=== PATIENT | male | born 1950 | race Caucasian/White ===

== ENCOUNTER 2017-01-03 06:33 | Emergency (ER) | payer OTHER ==
[2017-01-03] MEDS ORDERED: PROMETHAZINE INJ 25 MG in SODIUM CHLORIDE 0.9% 50 ML IV STA (06:48)
[2017-01-03] MEDS ORDERED: PROMETHAZINE 25 MG/1 ML VIAL ONE (06:50)
[2017-01-03 06:58] LABS: BASOPHILS # (AUTO) 0.1 10^3/uL (0.0-0.1); BASOPHILS % (AUTO) 0.6 %; HCT - HEMATOCRIT 51.7 % (42.0-52.0); HGB - HEMOGLOBIN 17.4 g/dL (14.0-18.0); LYMPHOCYTES # (AUTO) 1.3 10^3/uL (1.5-3.5); LYMPHOCYTES % (AUTO) 9.5 %; MEAN CORPUSCULAR HEMOGLOBIN 30.6 pg (27.0-31.0); MEAN CORPUSCULAR HGB CONC 33.6 g/dL (32.0-36.0); MEAN PLATELET VOLUME 7.8 fL (7.4-11.4); MONOCYTES # (AUTO) 0.6 10^3/uL (0.0-1.0); MONOCYTES % (AUTO) 4.5 %; NEUTROPHILS # (AUTO) 11.7 10^3/uL (1.5-6.6); NEUTROPHILS % (AUTO) 85.4 %; NUCLEATED RED BLOOD CELLS AUTO 0.1 /100WBC; RED BLOOD COUNT 5.67 10^6/uL (4.70-6.10); RED CELL DISTRIBUTION WIDTH 14.1 % (12.0-15.0); UNCORRECTED WHITE BLOOD COUNT 13.7 x10^3/uL; WHITE BLOOD COUNT 13.7 x10^3/uL (4.8-10.8)
[2017-01-03] MEDS ORDERED: LORazepam 2 MG/ML SYRINGE IVP STA ×2 (07:07→08:59)
[2017-01-03] MEDS ORDERED: ACETAMINOPHEN 1,000 MG/100 ML 100 ML IV STA (07:07)
[2017-01-03] MEDS ORDERED: KETOROLAC 30 MG/ML VIAL IVP STA (07:07)
[2017-01-03] MEDS ORDERED: SODIUM CHLORIDE 0.9% 1,000 ML IV ONE (07:07)
[2017-01-03 07:13] LABS: ALBUMIN/GLOBULIN RATIO 1.3 (1.0-2.2); BILIRUBIN,TOTAL 0.8 mg/dL (0.2-1.0); CALCIUM 10.1 mg/dL (8.5-10.3); CREATININE 1.2 mg/dL (0.6-1.2); POTASSIUM 4.2 mmol/L (3.5-5.0); TOTAL PROTEIN 8.7 g/dL (6.7-8.2)
[2017-01-03] MEDS ORDERED: LORazepam 2 MG/ML SYRINGE ONE ×2 (07:21→09:02)
[2017-01-03] MEDS ORDERED: KETOROLAC 30 MG/ML VIAL ONE (07:21)
[2017-01-03] MEDS ORDERED: ACETAMINOPHEN 1,000 MG/100 ML 100 ML IV ONE (07:22)
--- NOTE | 2017-01-03 07:50 | ED Physician Documentation ---
History of Present Illness - Stated complaint Stated Complaint: VOMITING/NAUSEA/ABD PX - Chief complaint Chief Complaint: Abd Pain - Additonal information Additional information: hx from pt 66 male hx recurrent abd pain s/p extensive work up (CT scans, angiograms, surgical eval , scopes, porphyria work up etc all neg) sx are typical of cyclic vomiting syndrome has been seen in [place] and has been doing very well for a year on maintenance meds including nortryptiline, prazosin duloxetine mirtazapin after working in [employer] and [employer] he has exacerbation of sx exact same as prior episodes diffuse abd cramping NV no fever no diarrhea no blood in stool no urinary sx Review of Systems Constitutional: denies: Fever, Chills Cardiac: denies: Chest pain / pressure Respiratory: denies: Dyspnea GI: reports: Abdominal Pain, Nausea, Vomiting. denies: Diarrhea : denies: Dysuria, Hematuria Endocrine: denies: Easy bruising / bleeding Immunocompromised: denies: Immunocompromised PD PAST MEDICAL HISTORY - Past Medical History Past Medical History: Yes Cardiovascular: Atrial fibrillation Respiratory: None Neuro: Peripheral neuropathy Endocrine/Autoimmune: None GI: None : None HEENT: Other Psych: Anxiety Musculoskeletal: Chronic back pain Derm: Other - Past Surgical History Past Surgical History: Yes Ortho: Knee replacement, Arthroscopic surgery - Present Medications Home Medications: Ambulatory Orders Medication Instructions Recorded Confirmed Diltiazem HCl [Diltiazem 24Hr Cd] 180 mg PO DAILY 06/29/15 01/03/17 DULoxetine [Cymbalta] 90 mg PO DAILY 01/03/17 01/03/17 Mirtazapine 7.5 mg PO DAILY 01/03/17 01/03/17 Nortriptyline [Pamelor] 10 mg PO DAILY 01/03/17 01/03/17 Prazosin [Minipress] 1 mg PO DAILY 01/03/17 01/03/17 - Allergies Allergies/Adverse Reactions: Allergies Allergy/AdvReac Type Severity Reaction Status Date / Time venom-honey bee Allergy Anaphylaxis Verified 01/03/17 06:50 [bee venom (honey bee)] - Social History Does the pt smoke?: No Smoking Status: Never smoker Does the pt drink ETOH?: No Does the pt have substance abuse?: Yes - Immunizations Immunizations are current?: Yes Immunizations: TDAP >10years/unknown - POLST Patient has POLST: Yes PD ED PE NORMAL - Vitals Vital signs reviewed: Yes - General General: Alert and oriented X 3, Other (moaning) - Neck Neck: Supple, no meningeal sign - Cardiac Cardiac: RRR - Respiratory Respiratory: No respiratory distress, Clear bilaterally - Abdomen Abdomen: Soft, Other (mild diffuse TTP s focal TTP and s peritoneal signs) - Male Male : Other (no hernia, no swelling, NT) - Derm Derm: Normal color - Neuro Neuro: Alert and oriented X 3 Results - Vitals Vitals: Vital Signs - 24 hr 01/03/17 01/03/17 01/03/17 06:43 07:40 08:00 Temperature 36.0 C L Heart Rate 77 97 99 Respiratory 26 H 16 13 Rate Blood Pressure 151/89 H 178/88 H 162/106 H O2 Saturation 98 98 97 Oxygen O2 Source [With Activity] Room air O2 Source [Without Activity] Room air O2 Source Room air - Labs Labs: Laboratory Tests 01/03/17 01/03/17 01/03/17 06:45 06:45 06:45 WBC 13.7 H RBC 5.67 Hgb 17.4 Hct 51.7 MCV 91.0 MCH 30.6 MCHC 33.6 RDW 14.1 Plt Count 267 MPV 7.8 Neut # 11.7 H Lymph # 1.3 L [place] # 0.6 Eos # 0.0 Baso # 0.1 Absolute Nucleated RBC 0.02 Nucleated RBCs 0.1 Sodium 139 Potassium 4.2 Chloride 101 Carbon Dioxide 24 Anion Gap 14.0 H BUN 24 H Creatinine 1.2 Estimated GFR (MDRD) 61 L Glucose 171 H Lactic Acid Calcium 10.1 Total Bilirubin 0.8 AST 25 ALT 16 Alkaline Phosphatase 88 Troponin I < 0.04 Total Protein 8.7 H Albumin 4.9 Globulin 3.8 Albumin/Globulin Ratio 1.3 Lipase 16 L 01/03/17 06:45 WBC RBC Hgb Hct MCV MCH MCHC RDW Plt Count MPV Neut # Lymph # [place] # Eos # Baso # Absolute Nucleated RBC Nucleated RBCs Sodium Potassium Chloride Carbon Dioxide Anion Gap BUN Creatinine Estimated GFR (MDRD) Glucose Lactic Acid 1.8 Calcium Total Bilirubin AST ALT Alkaline Phosphatase Troponin I Total Protein Albumin Globulin Albumin/Globulin Ratio Lipase PD MEDICAL DECISION MAKING - ED course ED course: the usual med combo that works well for this pt is ativan toradol ofirmev and compazine - already given phenergan by night shioft so do not give the compazine - pt feeling better - labs reviewed - plan to dc Departure - Departure Disposition: 01 Home, Self Care Clinical Impression: Recurring abdominal pain Condition: Good Instructions: ED Abdominal Pain Unkn Cause Follow-Up: Angel Brunner MD [Primary Care Provider] - Comments: Please continue the medications that have been working well for you. Follow up with your PMD about your blood pressure and blood sugar - both were elevated today Forms: Activity restrictions
[2017-01-03 09:31] VITALS: BP 153/101
== END 2017-01-03 09:31 | disposition home or self-care (01) ==
LOC: ED 06:33
DX: R10.9 Unspecified abdominal pain (principal); R03.0 Elevated blood-pressure reading, without diagnosis of hypertension; R73.9 Hyperglycemia, unspecified; I48.91 Unspecified atrial fibrillation; G62.9 Polyneuropathy, unspecified
CPT/HCPCS: 36415; 80053; 83605; 83690; 84484; 85025; 96365; 96375; 96376; 99283; 99284; J0131; J2060

== ENCOUNTER 2017-01-19 23:01 | Outpatient (CLI) | payer OTHER | END 2017-01-19 23:02 | disposition critical access hospital (66) | LOC: EMS 23:01 | PROVIDERS: ATTEND Surgery | DX: R10.9 Unspecified abdominal pain (principal); R11.0 Nausea | CPT/HCPCS: A0425; A0427 ==

== ENCOUNTER 2017-01-19 23:46 | Emergency (ER) | payer OTHER ==
--- NOTE | 2017-01-20 00:34 | ED Physician Documentation ---
PD HPI ABD PAIN - Stated complaint Stated Complaint: ABD PAIN - Chief complaint Chief Complaint: Abd Pain - History obtained from History obtained from: Patient, EMS - History of Present Illness Timing - onset: How many hours ago (5-6 hours [employer]) Timing - duration: Hours Timing - details: Abrupt onset Pain level max: 10 Pain level now: 10 Quality: Pain Location: All over / everywhere Radiation: Other (no radiation) Improved by: Other ( no ameliorating factors) Worsened by: Other (no exacerbating factors) Associated symptoms: No: Fever, Nausea, Vomiting, Diarrhea, Constipation, Chest pain Similar symptoms before: No diagnosis (long history of same symptoms, episodically for years. has had extensive w/u without diagnostic results) Recently seen: Emergency Dept (T+R earlier this month for same) Review of Systems Constitutional: reports: Reviewed and negative Cardiac: reports: Reviewed and negative Respiratory: reports: Reviewed and negative GI: reports: Abdominal Pain. denies: Nausea, Vomiting, Constipation, Diarrhea : denies: Dysuria PD PAST MEDICAL HISTORY - Past Medical History Cardiovascular: Atrial fibrillation Respiratory: None Neuro: Peripheral neuropathy Endocrine/Autoimmune: None GI: None : None HEENT: Other Psych: Anxiety Musculoskeletal: Chronic back pain Derm: Other - Past Surgical History Past Surgical History: Yes Ortho: Knee replacement, Arthroscopic surgery - Present Medications Home Medications: Ambulatory Orders Medication Instructions Recorded Confirmed Diltiazem HCl [Diltiazem 24Hr Cd] 180 mg PO DAILY 06/29/15 01/20/17 DULoxetine [Cymbalta] 90 mg PO DAILY 01/03/17 01/20/17 Mirtazapine 7.5 mg PO DAILY 01/03/17 01/20/17 Nortriptyline [Pamelor] 10 mg PO DAILY 01/03/17 01/20/17 Prazosin [Minipress] 1 mg PO DAILY 01/03/17 01/20/17 - Allergies Allergies/Adverse Reactions: Allergies Allergy/AdvReac Type Severity Reaction Status Date / Time venom-honey bee Allergy Anaphylaxis Verified 01/20/17 00:06 [bee venom (honey bee)] - Social History Does the pt smoke?: No Smoking Status: Never smoker Does the pt drink ETOH?: No Does the pt have substance abuse?: Yes - Immunizations Immunizations are current?: Yes Immunizations: TDAP >10years/unknown - POLST Patient has POLST: Yes PD ED PE NORMAL - Vitals Vital signs reviewed: Yes - General General: Alert and oriented X 3, Well developed/nourished, Other (appears uncomfortable, crying at times. diaphoretic) - Neck Neck: Supple, no meningeal sign - Cardiac Cardiac: RRR, No murmur - Respiratory Respiratory: No respiratory distress, Clear bilaterally - Abdomen Abdomen: Normal bowel sounds, Soft, Non tender, Non distended - Derm Derm: Normal color, Warm and dry Results - Vitals Vitals: Vital Signs - 24 hr 01/19/17 01/20/17 01/20/17 23:42 00:37 02:20 Temperature 36.6 C Heart Rate 109 H 118 H 113 H Respiratory 24 22 16 Rate Blood Pressure 148/118 H 168/115 H 170/110 H O2 Saturation 97 93 96 01/20/17 01/20/17 01/20/17 02:35 02:40 02:45 Temperature Heart Rate 112 H 95 106 H Respiratory 18 16 14 Rate Blood Pressure 184/110 H 162/122 H 166/120 H O2 Saturation 97 97 98 01/20/17 01/20/17 03:34 04:23 Temperature Heart Rate 108 H 102 H Respiratory 16 18 Rate Blood Pressure 170/92 H 161/102 H O2 Saturation 95 95 Oxygen O2 Source [With Activity] Room air O2 Source [Without Activity] Room air O2 Source Room air - Labs Labs: Laboratory Tests 01/20/17 01/20/17 00:25 01:01 WBC 14.1 H RBC 5.23 Hgb 15.8 Hct 47.6 MCV 91.1 MCH 30.2 MCHC 33.2 RDW 13.5 Plt Count 283 MPV 7.5 Neut # 12.5 H Lymph # 1.1 L [place] # 0.4 Eos # 0.0 Baso # 0.1 Absolute Nucleated RBC 0.01 Nucleated RBCs 0.1 Sodium 136 Potassium 3.8 Chloride 102 Carbon Dioxide 20 L Anion Gap 14.0 H BUN 21 H Creatinine 1.1 Estimated GFR (MDRD) 67 L Glucose 135 H Calcium 9.5 Total Bilirubin 0.3 AST 19 ALT 17 Alkaline Phosphatase 74 Total Protein 8.1 Albumin 4.4 Globulin 3.7 Albumin/Globulin Ratio 1.2 Lipase 16 L PD MEDICAL DECISION MAKING - ED course Complexity details: reviewed old records, reviewed results, re-evaluated patient , considered differential, d/w patient ED course: Patient responded quite well to IV ativan, toradol, compazine, and benadryl. On reevaluation he is sleeping but arousable to voice, reports resolution of symptoms, comfortable with d/c home. He was given IV lopressor during ED stay for rate control and BP control with adequate effect. Departure - Departure Disposition: 01 Home, Self Care Clinical Impression: Abdominal pain Condition: Good Instructions: ED Abdominal Pain Unkn Cause Male Follow-Up: Angel Brunner MD [Primary Care Provider] - Discharge Date/Time: 01/20/17 04:29
[2017-01-20] MEDS ORDERED: KETOROLAC 60 MG/2 ML VIAL IVP STA (00:40)
[2017-01-20] MEDS ORDERED: ACETAMINOPHEN 1,000 MG/100 ML 100 ML IV STA (00:40)
[2017-01-20] MEDS ORDERED: LORazepam 2 MG/ML SYRINGE IVP STA (00:40)
[2017-01-20] MEDS ORDERED: SODIUM CHLORIDE 0.9% 1,000 ML IV STA (00:40)
[2017-01-20] MEDS ORDERED: PROCHLORPERAZINE INJ 10 MG in SODIUM CHLORIDE 0.9% 50 ML IV ONE (00:41)
[2017-01-20] MEDS ORDERED: SODIUM CHLORIDE 0.9% 1,000 ML IV ONE (00:49)
[2017-01-20] MEDS ORDERED: SODIUM CHLORIDE 0.9% 50 ML IV ONE (00:49)
[2017-01-20] MEDS ORDERED: PROCHLORPERAZINE 10 MG/2 ML VIAL ONE (00:49)
[2017-01-20] MEDS ORDERED: ACETAMINOPHEN 1,000 MG/100 ML 100 ML IV ONE (00:49)
[2017-01-20] MEDS ORDERED: SODIUM CHLORIDE FLUSH 0.9% 10 ML SYRINGE IVP ONE (00:49)
[2017-01-20] MEDS ORDERED: KETOROLAC 30 MG/ML VIAL ONE (00:52)
[2017-01-20 00:58] LABS: ALBUMIN/GLOBULIN RATIO 1.2 (1.0-2.2); BILIRUBIN,TOTAL 0.3 mg/dL (0.2-1.0); CALCIUM 9.5 mg/dL (8.5-10.3); CREATININE 1.1 mg/dL (0.6-1.2); POTASSIUM 3.8 mmol/L (3.5-5.0); TOTAL PROTEIN 8.1 g/dL (6.7-8.2)
[2017-01-20 01:04] LABS: BASOPHILS # (AUTO) 0.1 10^3/uL (0.0-0.1); BASOPHILS % (AUTO) 0.5 %; EOSINOPHILS % (AUTO) 0.2 %; HCT - HEMATOCRIT 47.6 % (42.0-52.0); HGB - HEMOGLOBIN 15.8 g/dL (14.0-18.0); LYMPHOCYTES # (AUTO) 1.1 10^3/uL (1.5-3.5); LYMPHOCYTES % (AUTO) 7.5 %; MEAN CORPUSCULAR HEMOGLOBIN 30.2 pg (27.0-31.0); MEAN CORPUSCULAR HGB CONC 33.2 g/dL (32.0-36.0); MEAN CORPUSCULAR VOLUME 91.1 fL (80.0-94.0); MEAN PLATELET VOLUME 7.5 fL (7.4-11.4); MONOCYTES # (AUTO) 0.4 10^3/uL (0.0-1.0); MONOCYTES % (AUTO) 3.1 %; NEUTROPHILS # (AUTO) 12.5 10^3/uL (1.5-6.6); NEUTROPHILS % (AUTO) 88.7 %; NUCLEATED RED BLOOD CELLS AUTO 0.1 /100WBC; RED BLOOD COUNT 5.23 10^6/uL (4.70-6.10); RED CELL DISTRIBUTION WIDTH 13.5 % (12.0-15.0); UNCORRECTED WHITE BLOOD COUNT 14.1 x10^3/uL; WHITE BLOOD COUNT 14.1 x10^3/uL (4.8-10.8)
[2017-01-20] MEDS ORDERED: LORazepam 2 MG/ML SYRINGE ONE (01:18)
[2017-01-20] MEDS ORDERED: METOPROLOL 5 MG/5 ML VIAL IVP STA (02:26)
[2017-01-20] MEDS ORDERED: METOPROLOL 5 MG/5 ML VIAL IVP ONE (02:30)
[2017-01-20 04:23] VITALS: BP 161/102
== END 2017-01-20 04:29 | disposition home or self-care (01) ==
LOC: EDUNIT# → ED 23:46 → SUPCPDRO 23:46 → ED 01-20 04:29
DX: R10.84 Generalized abdominal pain (principal); I48.91 Unspecified atrial fibrillation
CPT/HCPCS: 36415; 80053; 83690; 85025; 96374; 96375; 99284; J0131; J2060; J7040

== ENCOUNTER 2017-01-24 10:04 | Emergency (ER) | payer OTHER ==
[2017-01-24] MEDS ORDERED: LORazepam 2 MG/ML SYRINGE IVP STA (10:47)
[2017-01-24] MEDS ORDERED: SODIUM CHLORIDE 0.9% 1,000 ML IV ONE (10:47)
[2017-01-24] MEDS ORDERED: PROCHLORPERAZINE 10 MG/2 ML VIAL IVP STA (10:47)
[2017-01-24] MEDS ORDERED: diphenhydrAMINE INJ 50 MG/ML VIAL IVP STA (10:47)
[2017-01-24] MEDS ORDERED: KETOROLAC 60 MG/2 ML VIAL IVP STA (10:48)
--- NOTE | 2017-01-24 10:51 | ED Physician Documentation ---
PD HPI ABD PAIN - Stated complaint Stated Complaint: ABD PX - Chief complaint Chief Complaint: Abd Pain - History obtained from History obtained from: Patient - History of Present Illness Timing - onset: Enter time (0600), Today Timing - duration: Hours Timing - details: Abrupt onset, Still present Quality: Cramping, Sharp, Pain Location: All over / everywhere Improved by: Laying still, Meds Worsened by: Other (nothing) Associated symptoms: Nausea, Vomiting Similar symptoms before: Diagnosis (cyclical vomiting syndrome) - Additional information Additional information: 66-year-old male with an extensive prior history of multiple emergency department visits for abdominal pain nausea and vomiting has been worked up and diagnosed with cyclical vomiting syndrome. [facility]. He has started to have episodes again this month. Review of Systems Constitutional: denies: Fever Eyes: denies: Decreased vision Ears: denies: Ear pain Nose: denies: Congestion Throat: denies: Sore throat Respiratory: reports: Cough GI: reports: Abdominal Pain, Nausea, Vomiting. denies: Constipation, Diarrhea : denies: Dysuria, Frequency PD PAST MEDICAL HISTORY - Past Medical History Past Medical History: Yes Cardiovascular: Atrial fibrillation Respiratory: None Neuro: Peripheral neuropathy Endocrine/Autoimmune: None GI: None : None HEENT: Other Psych: Anxiety Musculoskeletal: Chronic back pain Derm: Other - Past Surgical History Past Surgical History: Yes Ortho: Knee replacement, Arthroscopic surgery - Present Medications Home Medications: Ambulatory Orders Medication Instructions Recorded Confirmed Diltiazem HCl [Diltiazem 24Hr Cd] 180 mg PO DAILY 06/29/15 01/20/17 DULoxetine [Cymbalta] 90 mg PO DAILY 01/03/17 01/20/17 Mirtazapine 7.5 mg PO DAILY 01/03/17 01/20/17 Nortriptyline [Pamelor] 10 mg PO DAILY 01/03/17 01/20/17 Prazosin [Minipress] 1 mg PO DAILY 01/03/17 01/20/17 - Allergies Allergies/Adverse Reactions: Allergies Allergy/AdvReac Type Severity Reaction Status Date / Time venom-honey bee Allergy Anaphylaxis Verified 01/20/17 00:06 [bee venom (honey bee)] steroids Allergy Rash Uncoded 01/24/17 10:16 - Social History Does the pt smoke?: No Smoking Status: Never smoker Does the pt drink ETOH?: No Does the pt have substance abuse?: Yes - Immunizations Immunizations are current?: Yes Immunizations: TDAP >10years/unknown - POLST Patient has POLST: Yes PD ED PE NORMAL - Vitals Vital signs reviewed: Yes (hypertensive ) - General General: Alert and oriented X 3, Well developed/nourished, Other (moaning in pain ) - HEENT HEENT: Atraumatic, PERRL - Neck Neck: Supple, no meningeal sign - Cardiac Cardiac: No murmur - Respiratory Respiratory: No respiratory distress, Clear bilaterally - Abdomen Abdomen: Soft, Non tender - Back Back: No CVA TTP, No spinal TTP - Derm Derm: Normal color, Warm and dry, No rash - Extremities Extremities: No deformity, No edema - Neuro Neuro: Alert and oriented X 3, No motor deficit, No sensory deficit, Normal speech Results - Vitals Vitals: Vital Signs - 24 hr 01/24/17 01/24/17 01/24/17 10:11 12:07 13:10 Temperature 36.2 C L Heart Rate 77 53 L 77 Respiratory 22 18 16 Rate Blood Pressure 156/111 H 180/95 H 177/89 H O2 Saturation 100 97 97 Oxygen O2 Source [With Activity] Room air O2 Source [Without Activity] Room air O2 Source Room air PD MEDICAL DECISION MAKING - ED course Complexity details: reviewed old records, reviewed results, re-evaluated patient , considered differential, d/w patient ED course: 66 y/o male with a history of cyclical vomiting has had good control of his symptoms for the past year, until about a month ago. He has developed symptoms with nausea/vomiting and abdominal pain. The symptoms are similar to what he has had and been worked up for. Here in the ED he is given a cocktail of saline , compazine, toradal and benadrly and this improves his condition dramatically but not completely and he is given dilaudid 1mg IVP. Departure - Departure Disposition: 01 Home, Self Care Clinical Impression: Cyclical vomiting Qualifiers: Vomiting Intractability: non-intractable Nausea presence: with nausea Qualified Code(s): G43.A0 - Cyclical vomiting, not intractable Condition: Stable Instructions: Cyclic Vomiting Syndrome Ch Follow-Up: Angel Brunner MD [Primary Care Provider] - Discharge Date/Time: 01/24/17 13:10
[2017-01-24] MEDS ORDERED: KETOROLAC 30 MG/ML VIAL ONE (10:54)
[2017-01-24] MEDS ORDERED: PROCHLORPERAZINE 10 MG/2 ML VIAL ONE (10:54)
[2017-01-24] MEDS ORDERED: diphenhydrAMINE INJ 50 MG/ML VIAL ONE (10:54)
[2017-01-24] MEDS ORDERED: LORazepam 2 MG/ML SYRINGE ONE (10:54)
[2017-01-24] MEDS ORDERED: HYDROmorphone 1 MG/ML SYRINGE IVP STA (12:40)
[2017-01-24] MEDS ORDERED: HYDROmorphone 1 MG/ML SYRINGE ONE (12:41)
[2017-01-24 13:11] VITALS: BP 177/89
== END 2017-01-24 13:10 | disposition home or self-care (01) ==
LOC: ED 10:04
DX: G43.A0 Cyclical vomiting, in migraine, not intractable (principal); I48.91 Unspecified atrial fibrillation; G62.9 Polyneuropathy, unspecified; F41.9 Anxiety disorder, unspecified; Z96.659 Presence of unspecified artificial knee joint
CPT/HCPCS: 96374; 96375; 99283; 99284; J1170; J2060

== ENCOUNTER 2017-08-20 13:10 | Outpatient (CLI) | payer OTHER ==
--- NOTE | 2017-08-21 10:27 | XRAY Report ---
DATE OF SERVICE: 08/20/2017 THREE VIEW LEFT HAND: 08/20/2017 CLINICAL INDICATION: Trauma, pain. FINDINGS: AP, lateral, and oblique views of the left hand demonstrate no evidence of acute fracture or dislocation. Mild degenerative changes are present. There is a metallic foreign body in the inferior aspect of the thenar eminence, measuring 2 mm. IMPRESSION: OSTEOARTHRITIS. NO EVIDENCE OF ACUTE FRACTURE. SMALL METALLIC FOREIGN BODY IN THE INFERIOR ASPECT OF THE THENAR EMINENCE. TD: 08/21/2017 11:27
== END 2017-08-20 13:11 | disposition home or self-care (01) ==
LOC: DI.S 13:10
PROVIDERS: ATTEND Family Medicine
DX: M19.042 Primary osteoarthritis, left hand (principal); M79.5 Residual foreign body in soft tissue

== ENCOUNTER 2017-09-24 11:18 | Outpatient (CLI) | payer OTHER | END 2017-09-24 11:19 | disposition home or self-care (01) | LOC: RT 11:18 | PROVIDERS: ATTEND Nurse Anesthetist, Certified Registered | DX: Z01.810 Encounter for preprocedural cardiovascular examination (principal); I42.9 Cardiomyopathy, unspecified; I48.0 Paroxysmal atrial fibrillation; K40.90 Unilateral inguinal hernia, without obstruction or gangrene, not specified as recurrent; Z79.899 Other long term (current) drug therapy | CPT/HCPCS: 93005 ==

== ENCOUNTER 2017-09-29 11:12 | Day surgery (SDC) | payer OTHER ==
[~2017-09-29 11:12] MED LIST: ceFAZolin 3 GM/20 ML SYRINGE ONE
[2017-09-29] MEDS ORDERED: LACTATED RINGERS 1,000 ML IV ONE ×2 (11:30→13:16)
[2017-09-29] MEDS ORDERED: BUPIVACAINE 0.5% PF 10 ML VIAL ONE (12:47)
[2017-09-29] MEDS ORDERED: ONDANSETRON 4 MG/2 ML VIAL IVP ONE (13:15)
[2017-09-29] MEDS ORDERED: LIDOCAINE-MPF 2% 5 ML VIAL IM ONE (13:15)
[2017-09-29] MEDS ORDERED: GLYCOPYRROLATE 1 MG/5 ML VIAL IVP ONE (13:15)
[2017-09-29] MEDS ORDERED: MIDAZOLAM 2 MG/2 ML VIAL IVP ONE (13:15)
[2017-09-29] MEDS ORDERED: fentaNYL 100 MCG/2 ML VIAL IVP ONE (13:15)
[2017-09-29] MEDS ORDERED: PROPOFOL 200 MG/20 ML VIAL IVP ONE (13:15)
[2017-09-29] MEDS ORDERED: KETOROLAC 30 MG/ML VIAL IVP ONE (13:15)
[2017-09-29] MEDS ORDERED: BUPIVACAINE 0.5% PF 10 ML VIAL IM ONE (14:05)
[2017-09-29] MEDS ORDERED: oxyCOD/ACETAMIN 5 MG/325 MG TABLET PO ONE (15:26)
[2017-09-29 15:59] VITALS: BP 126/95
--- NOTE | 2017-09-29 19:14 | OPERATIVE REPORT ---
Operative Report - General Procedure Date: 09/29/17 Planned Procedure: LEFT inguinal herniorrhaphy Pre-Op Diagnosis: LEFT inguinal hernia Procedure Performed: LEFT indirect and direct inguinal herniorrhaphy with mesh Post Op Diagnosis: LEFT direct and indirect inguinal hernia - Procedure Note Primary Surgeon: Tiago Foote MD Anesthesia Provider: Brooks Price CRNA Anesthesia Technique: General LMA, Local (30 ml 1/2 % marcaine) IV Fluids (mL): 1,500 Estimated Blood Loss (mL): 15 Complications: None. - Other Other Information/Narrative: OPERATIVE DESCRIPTION/REPORT: After verbal and written informed consent was obtained detailing the risks of infection, bleeding requiring transfusion with its risks, nerve injury, and , and after I met with the patient confirming the surgery and the site of the surgery and after initialing the site of the surgery with a surgical marker , the patient was brought to the operative suite and placed supine on the operating table. Great care was taken to avoid pressure points to prevent pressure necrosis or nerve injury. Monitoring devices were applied along with TEDs and pneumatic compressive stockings (to prevent DVT). The patient received preoperative antibiotics for surgical prophylaxis. Brooks Price sedated and anesthetized the patient for the entire procedure. The patient was prepped and draped in the usual sterile manner. With the patient draped my initials were clearly visible. A "time in" then confirmed that the paitient was identified with 3 identifiers (name, date and medical record number), the history and physical was in the chart, the signed consent confirming the procedure was in the chart, the patient was in the correct position, the aforementioned prophylactic measures were in place or given, we had the correct personnel and equipment to complete the procedure and that anesthesia, surgery and nursing were given an opportunuty to express any concerns. With the agreement of everyone in the room, we proceeded with the operation. A standard inguinal incision was made and dissection was carried down to the external oblique aponeurosis using a combination of Metzenbaum scissors and Bovie electrocautery. The external oblique aponeurosis was cleared of overlying adherent tissue, and the external ring was delineated. The external oblique was the incised with a scalpel and this incision was carried out to the external ring using Metzenbaum scissors. Having exposed the inguinal canal, the cord structures were from the canal using blunt dissection, and a Patricks[place] drain was placed around the cord structures at the level of the pubic tubercle. This Venessa drain was then used to retract the cord structures as needed. Adherent cremasteric muscle was dissected free from the cord using Bovie electrocautery. The cord was then explored using a combination of sharp and blunt dissection , and the sac was found anteromedially to the cord structures. The sac was dissected free from the cord structures using a combination of blunt dissection and Bovie electrocautery. Once preperitoneal fat was encountered, the dissection stopped and the sac was high ligated with a 2-0 PDS, transected, the stump cauterized and allowed to retract back into the abdominal cavity and a large Bard Perfix plug (Ref# [], Lot# [], use date []) inserted into the internal ring. The plug was secured to the internal ring by interrupted 2-0 PDS sutures. The Bard Perfix enlay patch was then placed on the floor of the inguinal canal and secured in place using interrupted 0 PDS sutures to the conjoined tendon superiorly, pubic tubercle medially, and shelving edge inferiorly. By reinforcing the floor with the enlay patch, a new internal ring was thus formed. The [place] drain was removed. The wound was then irrigated using sterile saline, and hemostasis was obtained using Bovie electrocautery. The incision in the external oblique was approximated using a 3-0 Vicryl in a running fashion , thus reforming the external ring. The fascia and skin was then injected with the 1/2% marcaine for senior living pain control. The skin incision was approximated with 4-0 Monocryl in a subcuticular fashion. The skin was prepped with benzoin and steristrips were applied. At this point a time out was performed that confirmed that all the counts were correct, the procedure that was performed, the blood loss, the IV fluids administered, and the patients condition. A dressing was then applied. Gentle
== END 2017-09-29 11:13 | disposition home or self-care (01) ==
LOC: SDS 11:12
PROVIDERS: ATTEND Surgery
PROC: 0YU60JZ Supplement Left Inguinal Region with Synthetic Substitute, Open Approach (ICD-10-PCS; principal; 2017-09-29 12:15)
DX: K40.90 Unilateral inguinal hernia, without obstruction or gangrene, not specified as recurrent (principal); I10 Essential (primary) hypertension; I42.9 Cardiomyopathy, unspecified; Z87.891 Personal history of nicotine dependence
CPT/HCPCS: 49505; A9270; C1781; J7120

== ENCOUNTER 2019-04-14 13:46 | Outpatient (CLI) | payer OTHER ==
[2019-04-14 14:00] LABS: BASOPHILS # (AUTO) 0.1 10^3/uL (0.0-0.1); BASOPHILS % (AUTO) 0.5 %; EOSINOPHILS # (AUTO) 0.1 10^3/uL (0.0-0.7); HGB - HEMOGLOBIN 16.3 g/dL (14.0-18.0); LYMPHOCYTES % (AUTO) 21.2 %; MEAN CORPUSCULAR HGB CONC 33.7 g/dL (32.0-36.0); MEAN CORPUSCULAR VOLUME 94.9 fL (80.0-94.0); MEAN PLATELET VOLUME 9.2 fL (7.4-11.4); MONOCYTES # (AUTO) 0.8 10^3/uL (0.0-1.0); MONOCYTES % (AUTO) 8.8 %; NEUTROPHILS # (AUTO) 6.4 10^3/uL (1.5-6.6); PLT - PLATELET COUNT 223 10^3/uL (130-450); RED BLOOD COUNT 5.09 10^6/uL (4.70-6.10); RED CELL DISTRIBUTION WIDTH 13.2 % (12.0-15.0); WHITE BLOOD COUNT 9.5 x10^3/uL (4.8-10.8)
[2019-04-14 14:26] LABS: GLUCOSE, URINE (UA) NEGATIVE (NEGATIVE); KETONES,URINE (UA) 15 mg/dL (NEGATIVE); LEUKOCYTE ESTERASE, URINE NEGATIVE (NEGATIVE); NITRITE,URINE NEGATIVE (NEGATIVE); OCCULT BLOOD,URINE NEGATIVE (NEGATIVE); PROTEIN,URINE TRACE mg/dL (NEGATIVE); UROBILINOGEN,URINE 1 (NORMAL) E.U./dL (NORMAL)
[2019-04-14 14:32] LABS: BACTERIA,URINE Few /HPF (None Seen); BILIRUBIN,URINE NEGATIVE (NEGATIVE); CLARITY,URINE HAZY (CLEAR); ICTOTEST,URINE NEGATIVE; RBC,URINE 0-5 /HPF (0-5); SQUAMOUS EPITHELIAL CELL,UR MANY Squamous (<= Few)
[2019-04-14 14:33] LABS: CASTS, URINE 6-10 Hyaline Casts /LPF; MUCUS,URINE Few Strands
[2019-04-14 14:36] LABS: HEMOGLOBIN A1C 0.64 g/dL; HEMOGLOBIN A1C % 5.6 % (4.6-6.2)
[2019-04-14 14:50] LABS: CALCIUM 9.9 mg/dL (8.5-10.3); CREATININE 1.6 mg/dL (0.6-1.2)
== END 2019-04-14 13:47 | disposition home or self-care (01) ==
LOC: LAB 13:46
PROVIDERS: ATTEND Orthopaedic Surgery
DX: Z01.818 Encounter for other preprocedural examination (principal); Z01.812 Encounter for preprocedural laboratory examination; N39.9 Disorder of urinary system, unspecified; R73.9 Hyperglycemia, unspecified
CPT/HCPCS: 36415; 80048; 81001; 81003; 83036; 85025; 87086; 93005

== ENCOUNTER 2019-08-18 11:31 | Outpatient (CLI) | payer OTHER ==
[2019-08-18] MEDS ORDERED: IOVERSOL 320 100 ML VIAL IVP ONE ×2 (11:37→12:57)
[2019-08-18] MEDS ORDERED: IOVERSOL 320 50 ML VIAL ONE (11:37)
[2019-08-18] MEDS ORDERED: IOVERSOL 320 50 ML VIAL PO ONE (12:57)
--- NOTE | 2019-08-18 16:28 | CT Report ---
Reason: ABDOMEN PAIN Procedure Date: 08/18/2019 Accession Number: [id number] / [id number] Procedure: CT - Abdomen/Pelvis W CPT Code: Final Report FULL RESULT: EXAM: CT ABDOMEN AND PELVIS EXAM DATE: 08/18/2019 12:51 PM. CLINICAL HISTORY: ABDOMEN PAIN. COMPARISONS: ABDOMEN/PELVIS ANGIO 02/02/2015 9:28 AM. TECHNIQUE: Routine helical CT imaging was performed through the abdomen and pelvis. IV contrast: OPTI 320 90ML. Enteric contrast: No. Reconstructions: Coronal and sagittal. In accordance with CT protocol optimization, one or more of the following dose reduction techniques were utilized for this exam: automated exposure control, adjustment of mA and/or KV based on patient size, or use of iterative reconstructive technique. FINDINGS: Lung Bases: Unremarkable. Liver: Normal. No masses. Gallbladder/Bile Ducts: Unremarkable. Spleen: Normal. Pancreas: Normal. Adrenal Glands: Normal. Kidneys: Normal. No masses or hydronephrosis. Peritoneal Cavity/Bowel: Diverticulosis. Small fat-containing probable No free fluid, free air or adenopathy. No masses or acute inflammatory process. The appendix is well visualized and normal. Pelvic Organs: Fat-containing right inguinal. The bladder and visualized pelvic organs are within normal limits. Vasculature: Atherosclerotic changes Bones: DJD spine, SI joints, hips. Other: None. IMPRESSION: 1. Diverticulosis. 2. Normal appendix RADIA
== END 2019-08-18 11:32 | disposition home or self-care (01) ==
LOC: DI 11:31
PROVIDERS: ATTEND Nurse Practitioner Family
DX: K57.30 Diverticulosis of large intestine without perforation or abscess without bleeding (principal); R10.9 Unspecified abdominal pain
CPT/HCPCS: 74177; Q9967

== ENCOUNTER 2020-03-16 22:10 | Outpatient (CLI) | payer OTHER | END 2020-03-16 22:11 | disposition critical access hospital (66) | LOC: EMS 22:10 | PROVIDERS: ATTEND Surgery | DX: S09.90XA Unspecified injury of head, initial encounter (principal); R41.82 Altered mental status, unspecified; Z79.01 Long term (current) use of anticoagulants; W19.XXXA Unspecified fall, initial encounter; Y92.009 Unspecified place in unspecified non-institutional (private) residence as the place of occurrence of the external cause | CPT/HCPCS: A0425; A0427 ==

== ENCOUNTER 2020-12-14 13:08 | Outpatient (CLI) | payer OTHER | END 2020-12-14 13:09 | disposition home or self-care (01) | LOC: RT 13:08 | PROVIDERS: ATTEND Surgery | DX: Z01.818 Encounter for other preprocedural examination (principal); K40.90 Unilateral inguinal hernia, without obstruction or gangrene, not specified as recurrent; Z20.822 Contact with and (suspected) exposure to COVID-19 | CPT/HCPCS: 93005 ==

== ENCOUNTER 2020-12-17 06:29 | Day surgery (SDC) | payer OTHER ==
[~2020-12-17 06:29] MED LIST changes: +ceFAZolin 2 GM/50 ML 2 GM/50 ML BAG IV ONE; -ceFAZolin 3 GM/20 ML SYRINGE ONE
[2020-12-17] MEDS ORDERED: LACTATED RINGERS 1,000 ML IV ONE ×2 (06:36→09:12)
[2020-12-17] MEDS ORDERED: ceFAZolin 1 GM VIAL ONE (07:05)
[2020-12-17] MEDS ORDERED: BUPIVACAINE 0.5% PF 30 ML VIAL ONE (07:05)
[2020-12-17] MEDS ORDERED: SODIUM CHLORIDE 0.9% 10 ML VIAL IVP ONE ×2 (07:05→08:02)
[2020-12-17] MEDS ORDERED: LIDOCAINE MPF 2%-EPI 1:200000 20 ML VIAL ONE (07:06)
[2020-12-17] MEDS ORDERED: fentaNYL 100 MCG/2 ML VIAL ONE (07:11)
[2020-12-17] MEDS ORDERED: MIDAZOLAM 2 MG/2 ML VIAL ONE (07:11)
--- NOTE | 2020-12-17 07:12 | ANESTHESIA ---
Pre-Anesthesia VS, & Labs - Diagnosis right inguinal hernia - Procedure right inguinal hernia repair Vital Signs: Temp Pulse Resp BP Pulse Ox 36.1 C L 85 14 117/66 99 12/17/20 06:40 12/17/20 06:40 12/17/20 06:40 12/17/20 06:40 12/17/20 06:40 Height: 6 ft Weight (kg): 96 kg Body Mass Index: 28.7 BMI Classification: Overweight - NPO >8 hours Home Medications and Allergies Home Medications: Ambulatory Orders Alprazolam [Xanax] 1 mg PO PRN PRN 12/07/20 Apixaban [Eliquis] 5 mg PO BID 12/07/20 Butorphanol Tartrate 10 mg NS DAILY 12/07/20 Diltiazem HCl [Diltiazem 24Hr Cd] 180 mg PO DAILY 06/29/15 DULoxetine [Cymbalta] 90 mg PO DAILY 01/03/17 Mirtazapine 7.5 mg PO DAILY 01/03/17 Nortriptyline [Pamelor] 10 mg PO DAILY 01/03/17 Prazosin [Minipress] 1 mg PO DAILY 01/03/17 Alprazolam [Xanax] 1 mg PO PRN PRN 12/07/20 Apixaban [Eliquis] 5 mg PO BID 12/07/20 Butorphanol Tartrate 10 mg NS DAILY 12/07/20 Allergies/Adverse Reactions: Allergies Allergy/AdvReac Type Severity Reaction Status Date / Time Corticosteroids Allergy Anaphylaxis Verified 12/14/20 12:49 (Glucocorticoids) venom-honey bee Allergy Anaphylaxis Verified 12/14/20 12:49 [bee venom (honey bee)] Anes History & Medical History - Anesthetic History Anesthesia Complications: reports: No previous complications - Medical History Cardiovascular: reports: Atrial fibrillation Pulmonary: reports: None Gastrointestinal: reports: None Urinary: reports: None Musculoskeletal: reports: Chronic back pain Endocrine/Autoimmune: reports: None Blood Disorders: reports: None Skin: reports: None Smoking Status: Never smoker History of Cancer?: No - Surgical History General: reports: Colonoscopy, Other Orthopedic: reports: Knee replacement, Rotator cuff repair, Arthroscopic surgery, Spine surgery Exam General: Alert, Oriented x3 Dental: WNL Mouth Opening: Greater than 4 Fingerbreadths Neck Mobility: Reduced Mallampati classification: II Respiratory: Lungs clear Cardiovascular: Normal S1, Normal S2 (irreg- a fib) Plan Anesthesia Type: General Consent for Procedure(s) Verified and Reviewed: Yes Code Status: Attempt Resuscitation ASA classification: 2-Mild systemic disease Is this case an emergency?: No
[2020-12-17] MEDS ORDERED: PROPOFOL 200 MG/20 ML VIAL IVP ONE (07:13)
[2020-12-17] MEDS ORDERED: LIDOCAINE-MPF 2% 5 ML VIAL ONE (07:13)
[2020-12-17] MEDS ORDERED: ePHEDrine 50 MG/ML VIAL IVP PRN (07:16)
[2020-12-17] MEDS ORDERED: METOCLOPRAMIDE 10 MG/2 ML VIAL IVP PRN (07:16)
[2020-12-17] MEDS ORDERED: NALOXONE 0.4 MG/ML VIAL IVP PRN (07:16)
[2020-12-17] MEDS ORDERED: HYDROmorphone 0.5 MG/0.5 ML SYRINGE IVP PRN (07:16)
[2020-12-17] MEDS ORDERED: ATROPINE ABBOJECT 1 MG/10 ML SYRINGE IVP PRN (07:16)
[2020-12-17] MEDS ORDERED: MORPHINE 2 MG/ML CARPUJECT IVP PRN (07:16)
[2020-12-17] MEDS ORDERED: ONDANSETRON 4 MG/2 ML VIAL IVP PRN ×2 (07:16→08:53)
[2020-12-17] MEDS ORDERED: LACTATED RINGERS 1,000 ML IV SCH (08:00)
[2020-12-17] MEDS ORDERED: GLYCOPYRROLATE 1 MG/5 ML VIAL ONE (08:06)
[2020-12-17] MEDS ORDERED: ceFAZolin 1 GM VIAL IR ONE (08:23)
[2020-12-17] MEDS ORDERED: LIDOCAINE 2%-EPI 1:100000 20 ML MDV SUBQ ONE (08:23)
[2020-12-17] MEDS ORDERED: BUPIVACAINE 0.5% PF 30 ML VIAL INFIL ONE (08:24)
--- NOTE | 2020-12-17 08:52 | OPERATIVE REPORT ---
Operative Report - General Procedure Date: 12/17/20 Planned Procedure: Right inguinal hernia repair Pre-Op Diagnosis: Symptomatic right inguinal hernia Procedure Performed: Right inguinal hernia repair Post Op Diagnosis: Large direct right inguinal hernia - Procedure Note Primary Surgeon: Lui Anesthesia Provider: TURNER Price Anesthesia Technique: General LMA, Local Estimated Blood Loss (mL): 10 Findings: Large direct right inguinal hernia Complications: None apparent - Other Other Information/Narrative: After obtaining informed consent, the patient is brought to the operating room and placed in the supine position on the operating table. Following successful induction of general endotracheal anesthesia, appropriate padding of all bony prominences, and placement of appropriate monitors, the abdomen was prepped and draped in the standard surgical fashion. A timeout was held per scope protocol. All elements of the surgical safety checklist were followed before, during, and after the procedure. We began the procedure by infiltrating a mixture of local anesthetics medial to the anterior superior iliac spine on the right. This was done to create an ileal inguinal nerve block. We then selected a site for an incision in the right lower quadrant just superior and lateral to the right pubic tubercle. This area was anesthetized with additional local anesthetic and an incision was created here.The incision was carried down through the skin and subcutaneous tissue to reveal the fascia of the external oblique aponeurosis. Retractor was placed and the aponeurosis was opened in direction of its fibers. The ilioinguinal nerve was immediately identified. We continued by identifying the spermatic cord and gently encircling it with a Wittman drain. The hernia sac was carefully dissected free from the cord structures and was noted to be in the inferior lateral position. It consisted primarily of a large lipoma and a direct inguinal hernia. The hernia contents were placed back into the abdominal cavity. We elected to repair the hernia with a large Prolene hernia system mesh implant. This was dipped in Ancef containing solution and then deployed into the defect. The posterior leaflet was straightened and flattened in the preperitoneal space. The anterior leaflet was then nicked medially to provide a place for the spermatic cord and then closed with a Vicryl suture. The more inferior aspect was then sewn to Carlos's ligament medially. Laterally it was tucked under the external beak aponeurosis. The wound was checked for hemostasis and irrigated with warm saline solution. It was aspirated free of all fluid and particulate matter. The extra oblique aponeurosis was then closed with a running locking Vicryl suture Bonita's fascia was closed with Vicryl suture and Monocryl stitches were placed in the skin. All sponge, needle, and instrument counts were correct at the conclusion of the case. The patient was allowed awaken from anesthesia without difficulty and taken to the postanesthesia care unit in good condition.
[2020-12-17] MEDS ORDERED: oxyCODONE 5 MG TABLET PO PRN (08:53)
[2020-12-17] MEDS ORDERED: ACETAMINOPHEN 325 MG TABLET PO PRN (08:53)
[2020-12-17] MEDS ORDERED: IBUPROFEN 600 MG TABLET PO PRN (08:53)
[2020-12-17 09:42] VITALS: BP 122/76
--- NOTE | 2020-12-17 11:16 | ANESTHESIA POST OP EVALUATION ---
Anesthesia Post Eval - Post Anesthesia Eval Vitals: Last Vital Signs Temp 36.2 C L 12/17/20 09:25 Pulse 68 12/17/20 09:25 Resp 14 12/17/20 09:25 BP 122/76 12/17/20 09:25 Pulse Ox 96 12/17/20 09:25 CV Function Including HR & BP: Stable Pain Control: Satisfactory Nausea & Vomiting: Negative Mental Status: Baseline Respiratory Status: Airway Patent Hydration Status: Satisfactory Anesthesia Complications: None
== END 2020-12-17 06:30 | disposition home or self-care (01) ==
LOC: SDS 06:29
PROVIDERS: ATTEND Surgery
DX: K40.90 Unilateral inguinal hernia, without obstruction or gangrene, not specified as recurrent (principal); I48.91 Unspecified atrial fibrillation; I25.2 Old myocardial infarction; I10 Essential (primary) hypertension; E66.3 Overweight; Z68.28 Body mass index [BMI] 28.0-28.9, adult
CPT/HCPCS: 49505; C1781; J0690; J7120

== ENCOUNTER 2021-08-14 11:38 | Outpatient (CLI) | payer OTHER ==
--- NOTE | 2021-08-14 17:04 | XRAY Report ---
PROCEDURE: Lumbar Spine 2 View INDICATIONS: RIGHT SIDE SCIATICA TECHNIQUE: 3 views of the lumbar spine were acquired. COMPARISON: None. FINDINGS: Bones: 5 [id number] vertebrae are present. There is minimal retrolisthesis at L1-L2 and L2-L3. Multilevel disc space narrowing demonstrated including moderate narrowing at L4-L5 and L5-S1 with end plate sclerosis and osteophytosis. There is mild facet arthropathy in the lower lumbar spine. No vert ebral body compression fractures. No suspicious bony lesions. Soft tissues: Overlying bowel gas pattern is normal. No suspicious soft tissue calcifications. IMPRESSION: 1. Multilevel degenerative disc disease including moderate degeneration at L4-5 and L5-S1. 2. Mild facet arthropathy in the lower lumbar spine. 3. Minimal retrolisthesis in the upper lumbar spine. Reviewed by: Miguel Joshi MD on 08/14/2021 5:03 PM PST Approved by: Miguel Joshi MD on 08/14/2021 5:03 PM PST Station ID: [id number]
== END 2021-08-14 11:39 | disposition home or self-care (01) ==
LOC: DI.S 11:38
PROVIDERS: ATTEND Nurse Practitioner Family
DX: M51.17 Intervertebral disc disorders with radiculopathy, lumbosacral region (principal)

== ENCOUNTER 2023-12-20 15:49 | Outpatient (CLI) | payer OTHER | END 2023-12-20 15:50 | disposition critical access hospital (66) | LOC: EMS 15:49 | DX: R10.84 Generalized abdominal pain (principal) | CPT/HCPCS: A0425; A0427 ==

== ENCOUNTER 2024-03-26 08:29 | Outpatient (CLI) | payer OTHER ==
--- NOTE | 2024-03-28 10:37 | Ultrasound Report ---
PROCEDURE: Aorta Screening INDICATIONS: AAA SCREEING TECHNIQUE: Real time scanning was performed of the aorta and iliac arteries, with image documentatio n. COMPARISON: None. FINDINGS: Aorta: Proximal aortic diameter measures 2.5 cm. Mid-aorta measures 2.0 cm. Distal aortic diameter is 1.8 cm. Iliac arteries: Right common iliac artery measures 1.0 cm. Left common iliac artery measures 1.1 cm . IMPRESSION: Mildly ectatic proximal aorta measuring up to 2.5 cm in diameter. Recommend follow-up ultrasound in 5 years per ACR consensus guidelines below. Recommended intervals for follow-up imaging of ectatic aortas and abdominal aortic aneurysms, per ACR consensus guidelines: 2.5-2.9 cm: 5 years 3.0-3.4 cm: 3 years 3.5-3.9 cm: 2 years 4.0-4.4 cm: 1 year 4.5-4.9 cm: 6 months + endovascular referral 5.0-5.5 cm: 3-6 months + endovascular referral Reviewed by: Lu Singh MD, PhD on 03/28/2024 10:36 AM PDT Approved by: Lu Singh MD, PhD on 03/28/2024 10:36 AM PDT Station ID: [id number]
== END 2024-03-26 08:30 | disposition home or self-care (01) ==
LOC: DI 08:29
PROVIDERS: ATTEND Nurse Practitioner Family
DX: Z13.6 Encounter for screening for cardiovascular disorders (principal); I77.819 Aortic ectasia, unspecified site